=== PATIENT | female | born 1995 | race Caucasian/White ===

== ENCOUNTER 2024-02-11 01:14 | Emergency (ER) | payer OTHER ==
[~2024-02-11] VITALS: Ht 152.4 cm; Wt 68.0 kg
[2024-02-11 01:49] VITALS: BP 118/80; PULSE 116; RESP 15; TEMP 98.1; O2SAT 96
== END 2024-02-11 04:31 | disposition left against medical advice (07) ==
LOC: ER 01:14
DX: M79.603 Pain in arm, unspecified (principal); Z53.21 Procedure and treatment not carried out due to patient leaving prior to being seen by health care provider